=== PATIENT | male | born 1950 | race African-American/Black ===

== ENCOUNTER 2016-10-09 17:41 | Emergency (ER) | payer MEDICARE, MEDICAID ==
[2016-10-09] MEDS ORDERED: 50% Dextrose in Water 50 ML Syringe IVPUSH ONE ×2 (17:57→18:53)
[2016-10-09] MEDS ORDERED: Nitroglycerin 0.4 MG Tab.SL ONE (18:13)
[2016-10-09] MEDS: Nitroglycerin 0.4 MG Tab.SL SL PRN ×2 (18:15→18:20)
[2016-10-09] MEDS ORDERED: Nitroglycerin 2% Oint 1 GM UD Packet TOP ONE (18:26)
[2016-10-09] MEDS ORDERED: Nitroglycerin 2% Oint 1 GM UD Packet ONE (18:28)
--- NOTE | 2016-10-09 18:28 | EDM.PDOC ---
ED HPI DIABETIC EMERGENCY - General Chief Complaint: Diabetic Complaint Stated Complaint: STROKE Time Seen by Provider: 10/09/16 18:28 - History of Present Illness INITIAL COMMENTS - FREE TEXT/NARRATIVE: HISTORY AND PHYSICAL: History of present illness: Patient 66-year-old black male with extensive past medical history including coronary artery disease and chronic renal failure who presents with altered mental status related presumptively to hypoglycemia he had a blood sugar of 33 in the field he did respond well to one amp of D50 given per paramedics upon arrival here he had a second episode and developed bradycardia this responded to a second amp of D50 the patient subsequently developed chest discomfort requiring nitroglycerin he is remained bradycardic with a rate in the upper 40s to 50s in a sinus rhythm EKG is no other acute changes. Blood pressures been stable with this patient remains awake alert with no focal findings on his examination Review of systems: As per history of present illness and below otherwise all systems reviewed and negative. Past medical history: As per history of present illness and as reviewed below otherwise noncontributory. Surgical history: As per history of present illness and as reviewed below otherwise noncontributory. Social history: No reported history of drug or alcohol abuse. Family history: As per history of present illness and as reviewed below otherwise noncontributory. Physical exam: HEENT: Atraumatic, normocephalic, pupils reactive, negative for conjunctival pallor or scleral icterus, mucous membranes moist, throat clear, neck supple, nontender, trachea midline. Lungs: Clear to auscultation, breath sounds equal bilaterally, chest nontender. Heart: S1S2, bradycardic negative for clicks, rubs, or JVD. Abdomen: Soft, nondistended, nontender. Negative for masses or hepatosplenomegaly. Negative for costovertebral tenderness. Pelvis: Stable nontender. Genitourinary: Deferred. Rectal: Deferred. Extremities: Atraumatic, negative for cords or calf pain. Neurovascular unremarkable. Neuro: Awake, alert, oriented. Follows commands moves all extremities limited grossly nonfocal exam Diagnostics: CBC CMP troponin PT INR EKG chest x-ray Therapeutics: One and D50 IV O2 monitor supplemental nitroglycerin every 5x3 when necessary Impression: #Altered metal status secondary to hypoglycemic episode #2 presumptive insulin reaction #3 history of diabetes #4 history chronic renal failure #5 chest pain # 6 history coronary artery disease Definitive disposition and diagnosis as appropriate pending reevaluation and review of above. - Related Data Allergies/ADRs: Allergies Allergy/AdvReac Type Severity Reaction Status Date / Time clopidogrel [From Plavix] Allergy Itching Verified 10/09/16 17:51 heparin Allergy Itching Verified 10/09/16 17:51 Iodinated Contrast Media - Allergy Difficulty Verified 10/09/16 17:51 Oral and Breathing [Iodinated Contrast Media - IV Dye] Penicillins Allergy Facial Verified 10/09/16 17:51 Swelling Home Meds: Home Meds Acetaminophen [Tylenol] 1 - 2 tab PO Q4H PRN 07/31/15 [History] Aspirin [Adult Low Dose Aspirin EC] 81 mg PO DAILY 07/31/15 [History] Calcium Acetate [PhosLo] 1,334 mg PO TIDMEALS 07/31/15 [History] Insulin Aspart [NovoLOG] 5 units SUBCUT BIDMEALS 07/31/15 [History] Lisinopril 40 mg PO DAILY 07/31/15 [History] Omeprazole [Prilosec] 40 mg PO BID 07/31/15 [History] Isosorbide Mononitrate [Imdur] 30 mg PO DAILY 09/17/15 [History] Nitroglycerin [Nitrostat] 0.4 mg SL ASDIRECTED PRN 09/17/15 [History] amLODIPine [Norvasc] 10 mg PO DAILY 09/17/15 [History] Carvedilol 0.5 tab PO BID 07/06/16 [History] Folic Acid/Vitamin B Comp W-C [Dialyvite] 1 tab PO DAILY 07/06/16 [History] Past Medical History HEENT History: Reports: Cataract, Impaired vision Other HEENT History: top and bottom denture Cardiovascular History: Reports: Heart Failure, Hypertension Respiratory History: Reports: Asthma, SOB Gastrointestinal History: Reports: Other (see below) Other Gastrointestinal History: Ulcers Genitourinary History: Reports: Acute renal failure, Chronic renal insuffiency, Dialysis Other Genitourinary History: Dialysis M-W-F Musculoskeletal History: Reports: Arthritis Other Musculoskeletal History: walks with cane or walker, 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 Neurological History: Reports: Neuropathy, peripheral, Seizure Other Neuro History: last seizure 2005 or 2006 Psychiatric History: Reports: None Endocrine/Metabolic History: Reports: Diabetes, type II Hematologic History: Reports: Anemia, Blood transfusion(s) Immunologic History: Reports: None Oncologic (Cancer) History: Reports: None Dermatologic History: Reports: None - Infectious Disease History Infectious Disease History: Reports: Chicken pox - Past Surgical History Head Surgeries/Procedures: Reports: None HEENT Surgical History: Reports: Cataract surgery Cardiovascular Surgical History: Reports: Other (see below) Other Cardiovascular Surgeries/Procedures: angiogram GI Surgical History: Reports: Cholecystectomy Social & Family History - Family History Family Medical History: Noncontributory Cardiac: Reports: Hypertension Endocrine/Metabolic: Reports: Diabetes, type II Oncologic: Reports: Lung, Prostate - Tobacco Use Smoking Status *Q: Never Smoker Second Hand Smoke Exposure: No - Caffeine Use Caffeine Use: Reports: Coffee - Recreational Drug Use Recreational Drug Use: No - Living Situation & Occupation Living situation: Reports: alone (Senior apartment, not assisted) ED ROS GENERAL - Review of Systems Review Of Systems: ROS reveals no pertinent complaints other than HPI. ED EXAM GENERAL NO PERIP PULSE - Physical Exam Exam: See Below (See dictation) Course - Vital Signs Last Recorded V/S: Last Vital Signs Temp Pulse 46 L 10/09/16 17:55 Resp 18 10/09/16 18:12 BP 161/66 H 10/09/16 18:20 Pulse Ox 100 10/09/16 18:12 - Orders/Labs/Meds Orders: Active Orders 24 hr Category Date Time Status EKG 12 Lead [EKG Documentation Completion] [RC] STAT Care 10/09/16 18:00 Active Chest 1V Frontal [CR] Stat Exams 10/09/16 18:14 Taken Nitroglycerin [Nitrostat] Med 10/09/16 18:15 Active 0.4 mg SL Q5M PRN Medication Orders Nitroglycerin (Nitrostat) 0.4 mg SL Q5M PRN PRN Reason: Chest Pain Stop: 10/09/16 18:26 Last Admin: 10/09/16 18:20 Dose: 0.4 mg Admin: 10/09/16 18:15 Dose: 0.4 mg Labs: Laboratory Tests 10/09/16 10/09/16 10/09/16 Range/Units 17:51 17:57 18:09 POC Glucose 77 57 L 96 (60-110) mg/dL Meds: Medications Generic Name Dose Route Start Last Admin Trade Name Freq PRN Reason Stop Dose Admin Nitroglycerin 0.4 mg 10/09/16 18:15 10/09/16 18:20 Nitrostat SL 10/09/16 18:26 0.4 mg Q5M PRN Administration Chest Pain Discontinued Medications Generic Name Dose Route Start Last Admin Trade Name Carol PRN Reason Stop Dose Admin Nitroglycerin Confirm 10/09/16 18:13 10/09/16 18:20 Nitrostat Administered 10/09/16 18:14 Not Given Dose 1.2 mg .ROUTE .STK-MED ONE Departure - Departure Time of Disposition: 18:26 Disposition: DC/Tfer to Acute Hospital 02 Condition: fair Clinical Impression: Hypoglycemia, Chest pain, Chronic renal failure, Bradycardia Forms: ED Department Discharge - My Orders Last 24 Hours: My Active Orders 10/09/16 18:14 Chest 1V Frontal [CR] Stat 10/09/16 18:15 Nitroglycerin [Nitrostat] 0.4 mg SL Q5M PRN - Assessment/Plan Last 24 Hours: My Active Orders 10/09/16 18:14 Chest 1V Frontal [CR] Stat 10/09/16 18:15 Nitroglycerin [Nitrostat] 0.4 mg SL Q5M PRN
[2016-10-09 22:14] VITALS: BP 180/60
--- NOTE | 2016-10-12 09:37 | CR ---
EXAM DATE: 10/09/16 PATIENT'S AGE: 66 Patient: TORY KRISHNAMURTHY Facility: [place], [place] Site . Site : 1950 Study: XRay Chest [id number]/21/[id number] 6:19:59 PM Ordering Physician: Kriss Oneil Final Report: INDICATIONS: Chest pain. TECHNIQUE: Chest 1 view portable. COMPARISON: Chest radiograph 07/11/2016. FINDINGS: Lungs are suboptimally inflated. Bibasilar atelectasis, left greater than right. No evidence of pneumothorax or pleural effusion. Cardiomegaly, unchanged. No evidence of pulmonary edema. No additional significant change. IMPRESSION: Low volume exam with bibasilar atelectasis, left greater than right. Cardiomegaly. No evidence of pulmonary edema. Dictated by Billy Boss MD @ 10/09/2016 6:34:41 PM Dictated by: Billy Boss MD @ 10/09/2016 18:34:52 (Electronic Signature) Report Signed by Proxy and Original Signed Document filed in the Medical Record. [facility]
== END 2016-10-09 20:16 | disposition left against medical advice (07) ==
LOC: MW.ED 17:41
DX: E11.649 Type 2 diabetes mellitus with hypoglycemia without coma (principal); G93.41 Metabolic encephalopathy; I25.10 Atherosclerotic heart disease of native coronary artery without angina pectoris; J45.909 Unspecified asthma, uncomplicated; I13.0 Hypertensive heart and chronic kidney disease with heart failure and stage 1 through stage 4 chronic kidney disease, or unspecified chronic kidney disease; N18.9 Chronic kidney disease, unspecified; I50.9 Heart failure, unspecified; Z90.49 Acquired absence of other specified parts of digestive tract
CPT/HCPCS: 36415; 71010; 80053; 82962; 84484; 85025; 85610; 93005; 96374; 96376; 99285; A9270; J7060; 99284

== ENCOUNTER → 2016-10-29 | Outpatient (CLI) | payer MEDICARE, MEDICAID | LOC: MW.CHNEURO 08:00 | PROVIDERS: ATTEND Psychiatry & Neurology Neuromuscular Medicine | DX: G31.84 Mild cognitive impairment of uncertain or unknown etiology (principal) | CPT/HCPCS: 99204 ==